=== PATIENT | male | born 1985 | race Caucasian/White ===

== ENCOUNTER → 2023-04-18 | Outpatient (CLI) | payer OTHER, SELFPAY ==
[2023-04-18 17:50] LABS: Absolute Lymphocyte Count 1.75 X10^3/uL (0.83-4.51); Absolute Neutrophil Count 5.9 X10^3/uL (2.0-7.7); Basophil# 0.06 X10^3/uL; Basophil% 0.7 % (0-1); Eosinophil# 0.15 X10^3/uL; Eosinophils% 1.8 % (0-5); Hematocrit 46.1 % (40-54); Hemoglobin 14.9 g/dL (13.0-16.5); Lymphocyte # 1.75 X10^3/ul (0.83-4.51); Lymphocyte % 20.5 % (19-41); Mean Corp Hgb Conc 32.3 g/dL (32-36); Mean Corpuscular Hgb 29.5 pg (27.0-32.0); Mean Corpuscular Volume 91.3 fL (80-94); Mean Platelet Vol. 11.2 fl (6.2-12.0); Monocyte# 0.68 X10^3/uL; NRBC Flagged by Analyzer 0 % (0-5); Neutrophil # 5.86 X10^3/uL (2.7-7.7); Neutrophil % 68.6 % (47-70); Platelet Count 259 K/mm3 (150-450); RBC Distribution Width CV 12.7 % (11.6-14.6); RBC Distribution Width SD 41.7 fl (35.1-43.9); Red Blood Count 5.05 M/mm3 (4.6-6.2); White Blood Count 8.5 K/mm3 (4.4-11.0)
[2023-04-18 18:14] LABS: Hemoglobin A1c 5.2 % (3.8-5.6)
[2023-04-18 18:38] LABS: ALB/GLOB Ratio 1.1 RATIO (0.9-2.4); AST(SGOT) 21 U/L (15-37); Alanine Aminotransfer ALT/SGPT 27 U/L (16-61); Alkaline Phosphatase 51 U/L (45-117); Anion Gap 3 (5-15); BUN 20 mg/dL (7-18); BUN/Creat Ratio 18.7 RATIO (10-20); Chloride 106 mmol/L (98-107); Cholesterol 188 mg/dL (200); Creatinine, Serum 1.07 mg/dL (0.70-1.30); EST Glomerular Filtration Rate 82 mL/min (>60); Est Glom Filt Rate - Afr Amer 99 mL/min (>60); Globulin 3.7 g/dL (2.2-4.2); Glucose 82 mg/dL (74-106); High Density Lipoprotein 47 mg/dL; Protein, Total 7.7 g/dL (6.4-8.2); Sodium Level 136 mmol/L (136-145); Thyroid Stim Hormone (TSH) 2.22 uIU/mL (0.358-3.74); Triglycerides 128 mg/dL; Very Low Density Lipoprotein 26 mg/dL (5-40)
== END | disposition home or self-care (01) ==
LOC: MFPLAB 15:45
PROVIDERS: PCP Family Medicine; Visit Provider Family Medicine
DX: Z00.00 Encounter for general adult medical examination without abnormal findings (principal); Z13.228 Encounter for screening for other metabolic disorders; Z13.1 Encounter for screening for diabetes mellitus; Z13.0 Encounter for screening for diseases of the blood and blood-forming organs and certain disorders involving the immune mechanism; Z13.220 Encounter for screening for lipoid disorders
CPT/HCPCS: 36415; 80053; 80061; 83036; 84443; 85025

== ENCOUNTER → 2023-04-25 | Outpatient (CLI) | payer OTHER, SELFPAY ==
--- NOTE | 2023-04-25 10:52 | US_ITS ---
STUDY: THYROID ULTRASOUND REASON FOR EXAM: Male, 37 years old. L sided neck fullness. Potential thyroid nodule TECHNIQUE: Ultrasound evaluation of the thyroid was performed with real-time and static murcia-scale imaging. COMPARISON: None. FINDINGS: RIGHT LOBE: The right lobe of the thyroid gland measures 4.9 cm x 1.8 cm x 1.3 cm. There is a homogeneous echotexture. There are no demonstrated solid, cystic or complex lesions. LEFT LOBE: The left lobe of the thyroid gland measures 4.3 cm x 1.7 cm x 1.0 cm. There is a homogeneous echotexture. There are no demonstrated solid, cystic or complex lesions. ISTHMUS: The isthmus measures 3 mm. 1.9 cm x 1.1 cm x 0.5 cm benign-appearing right cervical lymph node. 1.7 cm x 0.9 cm x 0.4 cm benign appearing left cervical lymph node. US/Thyroid IMPRESSION: Normal ultrasound examination of the thyroid. Small bilateral cervical lymph nodes. Electronically Signed: Alfonso Amin MD at 14:58 EST ,
== END | disposition home or self-care (01) ==
LOC: US 10:52
PROVIDERS: PCP Family Medicine; Referring Provider Family Medicine; Visit Provider Family Medicine
DX: R22.1 Localized swelling, mass and lump, neck (principal)
CPT/HCPCS: 76536

== ENCOUNTER → 2024-04-24 | Outpatient (CLI) | payer OTHER, SELFPAY ==
[2024-04-24 12:03] LABS: Absolute Lymphocyte Count 1.19 X10^3/uL (0.83-4.51); Absolute Neutrophil Count 3.1 X10^3/uL (2.0-7.7); Basophil# 0.03 X10^3/uL; Basophil% 0.6 % (0-1); Eosinophil# 0.14 X10^3/uL; Eosinophils% 2.9 % (0-5); Hematocrit 46.2 % (40-54); Hemoglobin 14.9 g/dL (13.0-16.5); Lymphocyte # 1.19 X10^3/ul (0.83-4.51); Lymphocyte % 24.6 % (19-41); Mean Corp Hgb Conc 32.3 g/dL (32-36); Mean Corpuscular Hgb 28.9 pg (27.0-32.0); Mean Corpuscular Volume 89.5 fL (80-94); Mean Platelet Vol. 11.3 fl (6.2-12.0); Monocyte% 8.3 % (0-10); NRBC Flagged by Analyzer 0 % (0-5); Neutrophil # 3.07 X10^3/uL (2.7-7.7); Neutrophil % 63.4 % (47-70); Platelet Count 258 K/mm3 (150-450); RBC Distribution Width CV 12.5 % (11.6-14.6); RBC Distribution Width SD 40.9 fl (35.1-43.9); Red Blood Count 5.16 M/mm3 (4.6-6.2); White Blood Count 4.8 K/mm3 (4.4-11.0)
[2024-04-24 12:27] LABS: ALB/GLOB Ratio 1.1 RATIO (0.9-2.4); AST(SGOT) 21 U/L (15-37); Alanine Aminotransfer ALT/SGPT 26 U/L (16-61); Alkaline Phosphatase 56 U/L (45-117); Anion Gap 6 (5-15); BUN 15 mg/dL (7-18); BUN/Creat Ratio 16.2 RATIO (10-20); Calcium,Total 9.1 mg/dL (8.5-10.1); Chloride 105 mmol/L (98-107); Cholesterol 194 mg/dL (200); Creatinine, Serum 0.93 mg/dL (0.70-1.30); EST Glomerular Filtration Rate 96 mL/min (>60); Est Glom Filt Rate - Afr Amer 116 mL/min (>60); Globulin 3.6 g/dL (2.2-4.2); Glucose 88 mg/dL (74-106); High Density Lipoprotein 50 mg/dL; Potassium 4.1 mmol/L (3.5-5.1); Protein, Total 7.6 g/dL (6.4-8.2); Sodium Level 137 mmol/L (136-145); Triglycerides 66 mg/dL; Very Low Density Lipoprotein 13 mg/dL (5-40)
== END | disposition home or self-care (01) ==
LOC: MFPLAB 09:37
PROVIDERS: PCP Family Medicine; Referring Provider Family Medicine; Visit Provider Family Medicine
DX: Z13.1 Encounter for screening for diabetes mellitus (principal); R53.83 Other fatigue; Z13.220 Encounter for screening for lipoid disorders
CPT/HCPCS: 36415; 80053; 80061; 82306; 85025

== ENCOUNTER → 2024-12-26 | Outpatient (CLI) | payer OTHER, SELFPAY ==
--- NOTE | 2024-12-26 14:25 | CT_ITS ---
PROCEDURE: ABDOMEN/PELVIS WITH CONTRAST 12/26/2024 REASON FOR EXAM: ABD PAIN TECHNIQUE: ABDOMEN/PELVIS WITH CONTRAST Coronal and Sagittal reconstruction series were provided. CONTRAST: Isovue 370 VOLUME: 100 mL One or more dose reduction techniques were used (e.g., Automated exposure control, adjustment of the mA and/or kV according to patient size, use of iterative reconstruction technique. RADIATION DOSE SUMMARY: CTDlvol: 30 mGy DLP: 868 mGycm FINDINGS: Oral contrast was administered. There is no bowel obstruction. There is no free-fluid or free air. There is no pelvic or retroperitoneal adenopathy. There is no bowel dilatation or bowel wall thickening. Normal caliber of the abdominal aorta. No renal mass or hydronephrosis. Normal liver, spleen and pancreas. No adrenal or pancreatic abnormalities. No calcified gallstones. No mesenteric mass or adenopathy. There are bilateral L5 pars defects incidentally seen. The lung bases are clear CT/Abdomen/Pelvis WITH Contrast IMPRESSION: No acute abnormality Reading Location: [facility]
== END | disposition home or self-care (01) ==
LOC: CT 14:22
PROVIDERS: PCP Family Medicine; Referring Provider Family Medicine; Visit Provider Family Medicine
DX: R10.9 Unspecified abdominal pain (principal)
CPT/HCPCS: 74177; Q9967

== ENCOUNTER 2025-04-02 11:58 | Day surgery (SDC) | payer OTHER, SELFPAY ==
[2025-04-02] VITALS (8 sets, daily range): BP systolic 113–140; BP diastolic 76–99; PULSE 72–83; RESP 16–18; TEMP 36.4–37; O2SAT 97–100; BMI 25.9
[2025-04-02] MEDS: Lactated Ringers 1,000 ML 15 ML IV (12:15)
--- NOTE | 2025-04-02 12:25 | PCM.PRE.AN2 ---
ASA Classification* ASA Classification ASA Classification: 2 Assessment & Plan Anesthesia* Anesthesia Assessment Anesthesia Assessment: Discussed sedation and/or anesthesia options, risks, benefits, and alternatives with patient/parents/legal guardian/POA. Questions invited. The patient/parents/legal guardian/POA seems to understand and agrees to proceed with anesthesia plan. Reviewed the physical assessment, medical history, allergy history and patient home medications list prior to surgery/procedure/anesthetic and documented any changes. Performed airway and anesthesia risk assessments. Anesthesia Type Anesthesia Type: General Anesthesia Focused Assessment* Airway Assessment Mouth opens: >3 cm Mallampati Score: II Labs Anesthesia Preop lab: CBC WBC, (4.4-11.0) 4.8 K/mm3 04/24/24, 09:37 RBC, (4.6-6.2) 5.16 M/mm3 04/24/24, 09:37 Hgb, (13.0-16.5) 14.9 g/dL 04/24/24, 09:37 Hct, (40-54) 46.2 % 04/24/24, 09:37 Plt Count, (150-450) 258 K/mm3 04/24/24, 09:37 CHEMISTRY Potassium, (3.5-5.1) 4.1 mmol/L 04/24/24, 09:37 Sodium, (136-145) 137 mmol/L 04/24/24, 09:37 BUN, (7-18) 15 mg/dL 04/24/24, 09:37 Creatinine, (0.70-1.30) 0.93 mg/dL 04/24/24, 09:37 Glucose, (74-106) 88 mg/dL 04/24/24, 09:37 TSH, (0.358-3.74) 2.22 uIU/mL 04/18/23, 15:45 COAG Pre-Assessment Diagnosis/Proposed Procedure Planned Operative Procedure(s): (R) Lap Robotic Inguinal Hernia w/mesh Anesthesia History 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 When Was Last Pacemaker Check QUESTION #4 FULL TEXT: You/Your Family Experience fever (hyperthermia) with Anesthesia Last Oral Intake Last Oral intake: Last Oral Intake NPO since Meds taken in AM with sips of water? Meds patient instructed to take am of surgery PONV PONV - housekeeping department worker: PONV - housekeeping department worker Female No 03/30/25 09:12 HX of Motion Sickness Yes 03/30/25 09:12 HX of N/V After Surgery No 03/30/25 09:12 Non-Smoker Yes 03/30/25 09:12 Duration of Surgery greater Yes 03/30/25 09:12 than 60 minutes Number of Risk Factors 3 03/30/25 09:12 PONV Score Moderate Risk 03/30/25 09:12 Height & Weight Height & Weight: Anesthesia: Height & Weight Height 6 ft 03/13/25 08:50 Respiratory Assessment Respiratory Assessment - housekeeping department worker: Respiratory Tract Infection Hx - housekeeping department worker Hx Respiratory Tract Infection No 03/30/25 09:12 STOP Sleep Apnea STOP Sleep Apnea - housekeeping department worker: STOP Sleep Apnea - housekeeping department worker Hx Hypertension No 03/30/25 09:12 Hx Sleep Apnea No 03/30/25 09:12 CPAP BIPAP Do you snore loudly (louder No 03/30/25 09:12 than talking or can be heard Do you often feel tired/ No 03/30/25 09:12 fatigued/ sleepy during daytime? Has anyone observed you stop No 03/30/25 09:12 breathing during sleep? STOP Results Negative 03/30/25 09:12 QUESTION #5 FULL TEXT : Do you snore loudly (louder than talking or can be heard through closed doors)? Tobacco Use History Tobacco Use History - housekeeping department worker: Tobacco Use History - housekeeping department worker Tobacco Use Smoking Status Never smoker 03/30/25 09:12 Hx Tobacco Use No 03/30/25 09:12 Years Smoking Packs Smoked per Day Smoking Cessation Date was within the last 15 years Hx Smoking Cessation Date Hx Smoking Cessation Counseling Hematologic Medial History Hematologic Hx - housekeeping department worker: Hematologic Medical Hx - property manager Hx of Blood Transfusion No 03/30/25 09:12 Hx of Transfusion in last 3 No 03/30/25 09:12 Months Date of Last Transfusion (if within last 3 months) Ever experience any problems No 03/30/25 09:12 with transfusion(s)? Specify any problems Hx of Preganancy in last 3 N/A 03/30/25 09:12 Months Nurse Filling Out Transfusion NBUCHER 03/30/25 09:12 & Questions: Date: 03/30/25 03/30/25 09:12 Time: 09:13 03/30/25 09:12 Patient unable to answer at this time (ie. confused, unrespo /Reproduction History /Reproductive History - housekeeping department worker: /Reproductive Hx- housekeeping department worker Hx Now No 03/30/25 09:12 Gestational Age (in weeks): EDC: Hx Hx Para Hx Section SAB No 03/30/25 09:12 Does the father of the baby or his family experience fever w Father of the baby Malignant Hypertension history comment Active Medications Active Medications: Current Medications Generic Name Dose Route Start Last Admin Trade Name Freq PRN Reason Stop Dose Admin Lactated Ringer's 1,000 mls @ 15 mls/hr 04/02/25 12:15 IV .Q48H TENISHA PFSH Medical History Non-smoker Laceration of left thigh Home Medications ?Medication ?Instructions ?Recorded ?Last Taken ?Type NK 03/30/25 Unknown History Allergy/AdvReac Type Severity Reaction Status Date / Time No Known Allergies Allergy Verified 03/30/25 09:11 Family History Grandfather Cancer Surgical History History of meniscectomy of left knee Hx of LASIK Social History Smoking Status: Never smoker alcohol intake: current alcohol intake frequency: a few times a month Review of Systems (Anesthesia) ROS Narrative System reviewed and no additional complaints, except as documented.
--- NOTE | 2025-04-02 13:08 | PCM.HP.BLA ---
History and Physical Date of Admission: 04/02/25 Intake Vital Signs 06/30/2206:40 03/13/2508:50 Height 6 ft 6 ft Weight: 192 lb BMI 26.0 BP 128/77 H Blood Pressure Location Rt brachial Position Sitting Respiration 17 Pulse 83 Pulse Source Monitor Pulse Oximetry (%) 97 Oxygen Delivery Method room air Intake Visit Reasons: INGUINAL HERNIA Chief Complaint: inguinal hernia Is patient in pain?: No Allergies No Known Allergies Allergy (Unverified 03/13/25 08:51) PFSH Medical History (Updated 03/13/25 @ 09:[address] Omer Vargas MD) Laceration of left thigh Surgical History (Updated 03/13/25 @ 08:49 by Dayana Grimm) Hx of LASIK Family History (Updated 03/13/25 @ 08:49 by Dayana Grimm) Grandfather Cancer Social History (Updated 03/13/25 @ 08:50 by Dayana Grimm) Smoking Status: Never smoker alcohol intake: current alcohol intake frequency: a few times a month HPI HPI HPI: Patient is a 39-year-old male with a right inguinal hernia that he reports has been there for several months. He reports that is getting larger and more uncomfortable. He denies nausea or vomiting or fevers or chills. ROS General General: No weight change, appetite, fatigue, colon cancer, breast cancer or weakness HEENT HEENT: Yes eye surgery; No difficulty swallowing, eye injury, swollen glands or hoarseness Endo Endocrine: No thyroid disease, diabetes mellitus, thyroid cancer, Hair loss, heat intolerance or cold intolerance Skin Skin: No rash or changing moles Musc Musculoskeletal: No back problems, arthritis, rheumatoid arthritis, gout or joint pain Cardio Cardiovascular: No murmur, pacemaker, heart disease, atrial fibrillation, high blood pressure, heart attack, heart stent, palpitations, shortness of breath with exertion or chest pain Psych Psychiatric: No depression, anxiety or hearing voices Resp Respiratory: No shortness of breath, No sleep apnea, No cough, No COPD, No asthma, No emphysema and No wheezing Gastro Gastrointestinal: No abdominal pain, No nausea or vomiting, No diarrhea, No constipation, No blood in stool, No acid reflux, No hemorrhoids, No ulcers, No gallbladder problem and No black,tarry stools To Hematologic: No blood thinners, No blood disorders, No bleeding, No anemia and No blood clots Neuro Neurologic: No system reviewed and no additional complaints, except as documented, No as per HPI, No abnormal gait, No abnormal hearing, No abnormal movements, No abnormal speech, No behavioral changes, No burning sensations, No confusion, No convulsions, No disequilibrium, No dizziness, No localized weakness, No frequent falls, No headache(s), No lack of coordination, No loss of vision, No memory loss, No numbness, No other visual disturbances, No radicular pain, No restless legs, No sensory deficit, No syncope, No tingling, No tremor(s), No weakness and No other Exam Const General: cooperative Orientation: alert and oriented x3 HENMT Head: normal to inspection Neck Neck: normal visual inspection and full ROM Chest Chest palpation & inspection: normal inspection of the chest Resp Effort & Inspection: normal respiratory effort Auscultation: clear to auscultation bilaterally Cardio Rate: regular rate Rhythm: regular rhythm GI Inspection: non-distended Palpation: soft, hernia direct inguinal on the right and nontender Skin General: no rashes or lesions noted Neuro General: patient alert and patient oriented x3 Extrem General: full ROM Psych Appearance: grossly normal Mental Status: mental status grossly normal Assessment and Plan Assessment and Plan (1) Right inguinal hernia: Status: Acute Plan: The patient has a right inguinal hernia which is reducible. He has no symptoms on the left. He reports no nausea or vomiting. I discussed robotic assisted laparoscopic right inguinal hernia repair with mesh. I discussed the procedure in detail as well as the risks including but not limited to bleeding, infection, injury other organs such as the bowel, bladder, ureter, blood supply to the testicle. Patient understands the risks and is willing to proceed. We discussed repairing the contralateral side if a hernia is present. Omer Vargas MD Pager: [facility] [address] [place] [address], [address] [place] [address] Office: I have examined the patient and the H&P has been reviewed. There are no clinical changes since date of exam.
[2025-04-02] MEDS: Midazolam 2 MG/2 ML Syringe IV (13:47)
[2025-04-02] MEDS: Cefazolin 1 GM/5 ML Vial 2 GM IV (13:52)
[2025-04-02] MEDS: fentaNYL 100 MCG/2 ML Ampul 200 MCG IV (14:28)
--- NOTE | 2025-04-02 14:39 | PCM.OPRPT ---
Operative Report (Standard) Operative Information Date of Procedure: 04/02/25 Pre-Operative Diagnosis: Right inguinal hernia Post-Operative Diagnosis: Right inguinal hernia Surgery/Procedure Performed: Robotic assisted laparoscopic right inguinal hernia repair with mesh skoog machine operator: Yes Sandwich Maker: Carmen Babb Tasks completed by food and nutrition services assistant: Opening & closing Type of Anesthesia: General/Regional RN Documented Start/Stop Times: Operation Date: 04/02/25 13:30 Case Time Into Pre-Op 04/02/25 12:09 Anesthesia Start 04/02/25 13:40 Into Room 04/02/25 13:40 Procedure Start 04/02/25 13:59 Procedure Start Time: 13:59 Procedure Stop Time: 14:45 Select all DRAINS/GRAFTS/IMPLANTS that apply: Prosthetic device Prosthetic device details: ProGrip mesh Estimated Blood Loss: 10 Specimen collected: No Description of surgery: Patient was brought back to the operating room and general anesthesia was induced. The abdomen was prepped and draped in usual sterile fashion. A midline incision was made superior to the umbilicus. The fascia was grasped and elevated and a Veress needle was placed into the abdomen. Drop test was performed. The abdomen is insufflated 15 mmHg. The Veress needle was removed. A port was placed into the abdomen. The camera is placed in the abdomen to inspect from injuries and there were none. Patient was placed in steep Trendelenburg position. Under direct visualization an 8 mm port was placed in the right lateral abdomen as well as left lateral abdomen and the robot was docked. Using electrocautery scissors then incision was made in the peritoneum in the right lower quadrant. Dissection was carried inferior. There was retroperitoneal fat contained in the hernia that was reduced back into the retroperitoneum. The hernia sac was dissected free medial to this. Once the hernia sac was fully dissected free and the lipoma was fully dissected free and reduced back into the retroperitoneum the mesh was placed over the right inguinal hernia. The mesh was unfolded completely covering the inguinal hernia and placed behind the retroperitoneal fat. The retroperitoneal fat was then placed over the mesh to prevent it from going under the mesh. Next the peritoneum was reapproximated using a running 3 oh V-Loc suture. This completely covered the mesh. The retroperitoneal lipoma was incorporated into the suture line. Next the robot was undocked and the instruments were removed. The caps were removed from the ports and the abdomen was allowed to desufflate. The ports were removed. The skin incisions were injected with local anesthetic and closed with interrupted 4-0 Monocryl sutures. Steri-Strips and bandages were applied. The scrotum was checked at the end of the case and contained both testicles. The patient was awoken and taken to PACU in stable condition and tolerated the procedure well. Surgical Findings: Right inguinal hernia containing retroperitoneal fat Complications Complications: No Admit VTE Documentation VTE Mechan Device Prophylaxis: SCD's
--- NOTE | 2025-04-02 14:45 | EX.PCM.DISCH ---
Discharge Instructions Procedure Hernia Diet Discharge Diet: Light diet - advance as tolerated Activity Discharge Activity: May Not Drive (for 2-3 days or while taking narcotic pain meds.) and May Shower (with the bandage in place 1-2 days after surgery.) Lifting Restrictions: 20 pounds for 4 weeks. Additional Activity Instructions:: Climbing stairs is fine, walking is encouraged. Sitting in bed may be uncomfortable. Sitting up using your lateral muscles (sitting up sideways) is usually more comfortable. Do not drive, work heavy equipment of sign legal documents for 24 hours. If your hernia repair was an inguinal repair, you may have scrotal swelling, an ice pack and/or athletic support can provide more comfort. Pain medications may cause nausea, you should typically eat light foods as you take your pain medications. Pain medications may also cause constipation. If you have difficulty with this, discuss with your doctor. Dressing / Incision Call your doctor if your incision/area has: Continuous Slow Oozing, Sudden Increased Bleeding, Increased Pain/ Swelling, Increased Redness and Foul Smelling Discharge Call your doctor if you observe: Fever of 101 or Higher Suture Line Care: Avoid Pulling/Pushing and Avoid Pinching/Bending Remove Dressing in: 2 days (Remove clear bandages in 2 days, remove Steri-Strips in 7 to 10 days.) Additional Dressing/Incision Instructions:: Take ibuprofen and Tylenol alternating for pain, oxycodone for breakthrough pain Follow Up Care Please Follow Up With: Omer Vargas MD When: Please call to schedule 2 week follow up appointment. [phone] Test Results: Test results from this visit will be discussed in further detail at your follow-up appointment, if applicable. Discharge Plan Admission Attending Provider: Omer Vargas Primary Care Provider: Kristan Hedrick Instructions Print Language: Cypriot Discharge Orders/Prescriptions Prescriptions: New oxycodone 5 mg Tablet 5 - 10 mg PO Q4H PRN PRN (Reason: Pain Score 4-10) 5 Days Qty: 10 0RF Referrals / Follow Up: Kristan Hedrick MD [Primary Care Provider, Family Practice] Disposition Disposition (needs filled in before D/C Order can be placed): Home, Self Care
--- NOTE | 2025-04-02 16:14 | PCM.POST.ANE ---
Anesthesia: Postop Eval I Current Vital Signs Temperature: 97.8 F Pulse Rate: 73 Blood Pressure: 127/79 Respiratory Rate: 16 Pulse Ox: 100 Oxygen Delivery Method: Room Air Assessment Airway patent: Yes Spontaneous unlabored respirations: Yes Mental status: Awake nausea: No Vomiting: No Anesthesia Complication: No Fluid Hydration Crystalloid volume administer (ml): 400 Total IV fluid infused: 400 Progress Note Anesthesia document: Postop Eval 1 completed: Yes
--- NOTE | 2025-04-02 16:16 | PCM.POSTANE2 ---
Anesthesia Postop Eval I Sum Postop Eval Completion status Anesthesia document: Postop Eval 1 completed: Yes Anesthesia Postop Eval I Summary Anesthesia Postop Eval I Summary: Anesthesia Postop Eval I: Assessment Summary Airway patent Yes 04/02/25 16:16 Spontaneous unlabored Yes 04/02/25 16:16 respirations Mental status Awake 04/02/25 16:16 nausea No 04/02/25 16:16 Vomiting No 04/02/25 16:16 Anesthesia Postop Eval I: Fluid Summary Crystalloid volume administer 400 04/02/25 16:16 (ml) Colloids volume administered ( ml) Blood Product volume administered (ml) Total IV fluid infused 400 04/02/25 16:16 Anesthesia Postop Eval I: Summary Notes Anesthesia Complication No 04/02/25 16:16 Anesthesia Complication Comment: Post-operative progress note Anesthesia: Postop Eval II Evaluation Mental status: Awake Pain Level: 2 nausea: No Vomiting: No
--- OUTSIDE RECORDS SUMMARY | 2025-04-02 18:23 | XMS RPT_ITS | CCD ---
Author Organization [facility] Inform ion Partnership [facility] Care Team Providers Care Substitute Nurse Name Role Phone KULWANT CAMPBELL Attending Unavailable KULWANT CAMPBELL Consulting Unavailable KULWANT CAMPBELL Admitting Unavailable NONE, NONE Primary Care Unavailable NONE, NONE Consulting Unavailable Floridalma KEARNS, Kristan Primary Care Provider [phone] Kristan Ceron MD Attending Provider [phone] Kristan Ceron MD Referring Provider [phone] KRISTAN CERON MD Primary Care Physician [phone] KRISTAN CERON MD Attending Unavailable KRISTAN CERON MD Primary Care Unavailable Omer Vargas Attending Unavailable Floridalma, Kristan Primary Care Unavailable Kristan Ceron Attending Unavailable Floridalma, Kristan Primary Care Unavailable Floridalma, Kristan Referring Unavailable Floridalma, Kristan Referring Unavailable Floridalma, Kristan Attending Unavailable Floridalma, Kristan Primary Care Unavailable Floridalma, Kristan Referring Unavailable Omer Vargas Attending Unavailable Kristan Ceron Primary Care Unavailable Medications Current Medications Medication Drug Class(es) Dates Sig (Normalized) Sig (Original) amoxicillin 875 mg / clavulanate 125 mg oral tablet (3 sources) Penicillin-class Antibacterial Start: 06-30-2021 Amoxicillin-Pot Clavulanate 875-125 mg tablet Active 1 {tbl} PO TWICE A DAY 14 June 30, 2021 1:00am Start: 06-30-2021 take 1 tablet by sarah th twice daily Amoxicillin-Pot Clavulanate Active 1 TABLET PO TWICE A DAY June 30, 2021 12:00am Problems Active Problems Problem Classification Problem Date Documented Da te Episodic/Chronic Abdominal pain (1 source) Unspecified abdominal pain; Translations: [Unspecified abdominal pain] Onset: 01-01-2025 Episodic Open wounds of extremities (3 sources) Laceration of thigh; Translations: [Laceration without foreign body, left thigh, initial encounter] 06-30-2021 Episodic Past or Other Problems Problem Classification Problem Date Documented Da te Episodic/Chronic Immunizations and screening for infectious disease (2 sources) Encounter for observation for suspected exposure to other biological agents ruled out; Translations: [ENC OBS EXPS OTH BIO AGT RULED OUT] Onset: 11-13-2019 Episodic Other screening for suspected conditions (not mental disorders or infectious disease) (1 source) Encounter for screening for diabetes mellitus; Translations: [Encounter for screening for diabetes mellitus] Onset: 05-27-2024 Episodic Results Test Name Value Interpretation Reference Range Facility Surgery Visit Reporton 03-13 Surgery Visit Report [facility] [address] [place] [address] OFFICE VISIT Date of Service: 03/13/25 MR#: [id number] Acct: [id number] Name: TRUNG LUCERO SCOT Rep #: [id number] : 1985 Provider: Dr. Omer mcdaniel MD Age/Sex: 39/M Location: [facility] Status: Signed Intake Vital Signs 06/30/21 07:40 03/13/25 08:50 Height 6 ft 6 ft Weight: 192 lb BMI 26.0 BP 128/77 H Blood Pressure Location Rt brachial Position Sitting Respiration 17 Pulse 83 Pulse Source Monitor Pulse Oximetry (%) 97 Oxygen Delivery Method room air Intake Visit Reasons: INGUINAL HERNIA Chief Complaint: inguinal hernia Is patient in pain?: No Allergies No Known Allergies Allergy (Unverified 03/13/25 08:51) PFSH Medical History (Updated 03/13/25 @ 09:[address] Omer Vargas MD) Laceration of left thigh Surgical History (Updated 03/13/25 @ 08:49 by Dayana Grimm) Hx of LASIK Family History (Updated 03/13/25 @ 08:49 by Dayana Grimm) Grandfather Cancer Social History (Updated 03/13/25 @ 08:50 by Dayana Grimm) Smoking Status: Never smoker alcohol intake: current alcohol intake frequency: a few times a month HPI HPI HPI: Patient is a 39-year-old male with a right inguinal hernia that he reports has been there for several months. He reports that is getting larger and more uncomfortable. He denies nausea or vomiting or fevers or chills. ROS General General: No weight change, appetite, fatigue, colon cancer, breast cancer or weakness HEENT HEENT: Yes eye surgery; No difficulty swallowing, eye injury, swollen glands or hoarseness Endo Endocrine: No thyroid disease, diabetes mellitus, thyroid cancer, Hair loss, heat intolerance or cold intolerance Skin Skin: No rash or changing moles Musc Musculoskeletal: No back problems, arthritis, rheumatoid arthritis, gout or joint pain Cardio Cardiovascular: No murmur, pacemaker, heart disease, atrial fibrillation, high blood pressure, heart attack, heart stent, palpitations, shortness of breath with exertion or chest pain Psych Psychiatric: No depression, anxiety or hearing voices Resp Respiratory: No shortness of breath, No sleep apnea, No cough, No COPD, No asthma, No emphysema and No wheezing Gastro Gastrointestinal: No abdominal pain, No nausea or vomiting, No diarrhea, No constipation, No blood in stool, No acid reflux, No hemorrhoids, No ulcers, No gallbladder problem and No black,tarry stools To Hematologic: No blood thinners, No blood disorders, No bleeding, No anemia and No blood clots Neuro Neurologic: No system reviewed and no additional complaints, except as documented, No as per HPI, No abnormal gait, No abnormal hearing, No abnormal movements, No abnormal speech, No behavioral changes, No burning sensations, No confusion, No convulsions, No disequilibrium, No dizziness, No localized weakness, No frequent falls, No headache(s), No lack of coordination, No loss of vision, No memory loss, No numbness, No other visual disturbances, No radicular pain, No restless legs, No sensory deficit, No syncope, No tingling, No tremor(s), No weakness and No other Exam Const General: cooperative Orientation: alert and oriented x3 [facility] Head: normal to inspection Neck Neck: normal visual inspection and full ROM Chest Chest palpation inspection: normal inspection of the chest Resp Effort Inspection: normal respiratory effort Auscultation: clear to auscultation bilaterally Cardio Rate: regular rate Rhythm: regular rhythm GI Inspection: non-distended Palpation: soft, hernia direct inguinal on the right and nontender Skin General: no rashes or lesions noted Neuro General: patient alert and patient oriented x3 Extrem General: full ROM Psych Appearance: grossly normal Mental Status: mental status grossly normal Assessment and Plan Assessment and Plan (1) Right inguinal hernia: Status: Acute Plan: The patient has a radial hernia which is reducible. He has no symptoms on the left. He reports no nausea or vomiting. I discussed robotic assisted laparoscopic right inguinal hernia repair with mesh. I discussed the procedure in detail as well as the risks including but not limited to bleeding, infection, injury other organs such as the bowel, bladder, ureter, blood supply to the testicle. Patient understands the risks and is willing to proceed. We discussed repairing the contralateral side if a hernia is present. Omer Vargas MD Pager: [facility] [address] [place] [address], [address] [place] [address] Office: Coding Level of Care Code Off vis,new,level 4 Diagnoses Right inguinal hernia K40.90 03/13/25 (more content not included)... Normal [facility] US GROIN RIGHTon 02-25-2025 US GROIN RIGHT ORIGINAL EXAMINATION: Right groin [id number]/15/202 9:57 am COMPARISON: None TECHNIQUE: This interpretation is based on permanently stored and recorded images. The groin is scanned without and with the patient performing Valsalva. HISTORY: ORDERING SYSTEM PROVIDED HISTORY: Reason for Exam: ABD PAIN, , painful swelling in the right groin FINDINGS: There is a right groin hernia of 3.6 x 2.9 x 0.8 cm that contains fat and bowel. This is more prominent with Valsalva. The hernia is non reducible with gentle pressure. The hernia neck is about 1.7 cm. IMPRESSION: Right inguinal hernia. Interpreted by: Madelyn Carson MD Preliminary Report By: Madelyn Carson MD Electronically signed By Madelyn Carson MD Dictated Date: 02/25/2025 10:50:58 AM Prelim Date: 02/25/2025 10:52:53 AM Sign Date: 02/25/2025 10:52:53 AM Ordering Provider: KRISTAN CERON RP Normal [facility] Abdomen/Pelvis WITH Contrast on 12-26-2024 Abdomen/Pelvis WITH Contrast [facility] [address] [place] [address] [id number] Abdomen/Pelvis WITH Contrast MR#: [id number] Acct: [id number] Name: TRUNG LUCERO Rep #: [id number] : 1985 M 39 From: Champ Montez MD PCP: Dr. Kristan Ceron MD Status: REG CLI Study: Abdomen/Pelvis WITH Contrast Date of Exam: Exam# [id number] Ordering Dr: Kristan Ceron MD PROCEDURE: ABDOMEN/PELVIS WITH CONTRAST 12/26/2024 REASON FOR EXAM: ABD PAIN TECHNIQUE: ABDOMEN/PELVIS WITH CONTRAST Coronal and Sagittal reconstruction series were provided. CONTRAST: Isovue 370 VOLUME: 100 mL One or more dose reduction techniques were used (e.g., Automated exposure control, adjustment of the mA and/or kV according to patient size, use of iterative reconstruction technique. RADIATION DOSE SUMMARY: CTDlvol: 30 mGy DLP: 868 mGycm FINDINGS: Oral contrast was administered. There is no bowel obstruction. There is no free-fluid or free air. There is no pelvic or retroperitoneal adenopathy. There is no bowel dilatation or bowel wall thickening. Normal caliber of the abdominal aorta. No renal mass or hydronephrosis. Normal liver, spleen and pancreas. No adrenal or pancreatic abnormalities. No calcified gallstones. No mesenteric mass or adenopathy. There are bilateral L5 pars defects incidentally seen. The lung bases are clear CT/Abdomen/Pelvis WITH Contrast IMPRESSION: No acute abnormality Reading Location: [facility] CC: Dr. Kristan Ceron MD [employer] Technician: Signed Normal [facility] CBC W/Diff, Automatedon 04-13 Absolute Lymph 1.19 X10 3/uL Normal 0.83-4.51 [facility] Comment on above: Order Comment: Order Date: 04/24/24 Order Info: [id number] - CBCD Performed By: #### L 500.4050, L500.4100, L100.0100, L506.1000 #### [facility] [address] [place], [address] Absolute Neut 3.1 X10 3/uL Normal 2.0-7.7 [facility] Comment on above: Order Comment: Order Date: 04/24/24 Order Info: [id number] - CBCD Performed By: #### L 500.4050, L500.4100, L100.0100, L506.1000 #### [facility] [address] [place], [address] Basophils/100 WBC (Bld) 0.6 % Normal 0-1 [facility] Comment on above: Order Comment: Order Date: 04/24/24 Order Info: [id number] - CBCD Performed By: #### L 500.4050, L500.4100, L100.0100, L506.1000 #### [facility] [address] [place], [address] Eosinophils/100 WBC (Bld) 2.9 % Normal 0-5 [facility] Comment on above: Order Comment: Order Date: 04/24/24 Order Info: 0184- - CBCD Performed By: #### L 500.4050, L500.4100, L100.0100, L506.1000 #### [facility] [address] [place], [address] Erythrocyte distribution width (RBC) [Ratio] 12.5 % Normal 11.6-14.6 [facility] Comment on above: Order Comment: Order Date: 04/24/24 Order Info: 0184-1 - CBCD Performed By: #### L 500.4050, L500.4100, L100.0100, L506.1000 #### [facility] [address] [place], [address] Hematocrit (Bld) [Volume fraction] 46.2 % Normal 40-54 [facility] Comment on above: Order Comment: Order Date: 04/24/24 Order Info: 0184-1 - CBCD Performed By: #### L 500.4050, L500.4100, L100.0100, L506.1000 #### [facility] [address] [place], [address] Hemoglobin (Bld) [Mass/Vol] 14.9 g/dL Normal 13.0-16.5 [facility] Comment on above: Order Comment: Order Date: 04/24/24 Order Info: [id number] - CBCD Performed By: #### L 500.4050, L500.4100, L100.0100, L506.1000 #### [facility] [address] [place], [address] IG% 0.200 Normal 0.0-0.9 [facility] Comment on above: Order Comment: Order Date: 04/24/24 Order Info: [id number] - CBCD Result Comment: IG% - Immature Granulocytes (promyelocytes, myelocytes and metamyelocytes) > 1% indicates that a LEFT SHIFT is Present. Performed By: #### L 500.4050, L500.4100, L100.0100, L506.1000 #### [facility] [address] [place], [address] Lymphocytes/100 WBC (Bld) 24.6 % Normal 19-41 [facility] Comment on above: Order Comment: Order Date: 04/24/24 Order Info: 01808-12 - CBCD Performed By: #### L 500.4050, L500.4100, L100.0100, L506.1000 #### [facility] [address] [place], [address] MCH (RBC) [Entitic mass] 28.9 pg Normal 27.0-32.0 [facility] Comment on above: Order Comment: Order Date: 04/24/24 Order Info: [id number] - CBCD Performed By: #### L 500.4050, L500.4100, L100.0100, L506.1000 #### [facility] [address] [place], [address] MCHC (RBC) [Mass/Vol] 32.3 g/dL Normal 32-36 [facility] Comment on above: Order Comment: Order Date: 04/24/24 Order Info: 0184-1 - CBCD Performed By: #### L 500.4050, L500.4100, L100.0100, L506.1000 #### [facility] [address] [place], [address] MCV (RBC) [Entitic vol] 89.5 fL Normal 80-94 [facility] Comment on above: Order Comment: Order Date: 04/24/24 Order Info: 018- - CBCD Performed By: #### L 500.4050, L500.4100, L100.0100, L506.1000 #### [facility] [address] [place], [address] Monocytes/100 WBC (Bld) 8.3 % Normal 0-10 [facility] Comment on above: Order Comment: Order Date: 04/24/24 Order Info: 018- - CBCD Performed By: #### L 500.4050, L500.4100, L100.0100, L506.1000 #### [facility] [address] [place], [address] Neutrophils/100 WBC (Bld) 63.4 % Normal 47-70 [facility] Comment on above: Order Comment: Order Date: 04/24/24 Order Info: 018-1 - CBCD Performed By: #### L 500.4050, L500.4100, L100.0100, L506.1000 #### [facility] [address] [place], [address] Nucleated RBC (Bld) [#/Vol] 0 10*3/uL Normal 0-5 [facility] Comment on above: Order Comment: Order Date: 04/24/24 Order Info: 0184-1 - CBCD Performed By: #### L 500.4050, L500.4100, L100.0100, L506.1000 #### [facility] [address] [place], [address] Platelet mean volume (Bld) [Entitic vol] 11.3 fL Normal 6.2-12.0 [facility] Comment on above: Order Comment: Order Date: 04/24/24 Order Info: 018- - CBCD Performed By: #### L 500.4050, L500.4100, L100.0100, L506.1000 #### [facility] [address] [place], [address] Platelets (Bld) [#/Vol] 258 10*3/uL Normal 150-450 [facility] Comment on above: Order Comment: Order Date: 04/24/24 Order Info: 018- - CBCD Performed By: #### L 500.4050, L500.4100, L100.0100, L506.1000 #### [facility] [address] [place], [address] RBC (Bld) [#/Vol] 5.16 10*6/uL Normal 4.6-6.2 [facility] Comment on above: Order Comment: Order Date: 04/24/24 Order Info: 018- - CBCD Performed By: #### L 500.4050, L500.4100, L100.0100, L506.1000 #### [facility] [address] [place], [address] RDW SD 40.9 fl Normal 35.1-43.9 [facility] Comment on above: Order Comment: Order Date: 04/24/24 Order Info: 018- - CBCD Performed By: #### L 500.4050, L500.4100, L100.0100, L506.1000 #### [facility] [address] [place], [address] WBC (Bld) [#/Vol] 4.8 10*3/uL Normal 4.4-11.0 [facility] Comment on above: Order Comment: Order Date: 04/24/24 Order Info: 0184-1 - CBCD Performed By: #### L 500.4050, L500.4100, L100.0100, L506.1000 #### [facility] [address] [place], [address] Comprehensive Metabolic Prof ilon 04-24-2024 Albumin [Mass/Vol] 4.0 g/dL Normal 3.2-5.0 [facility] Comment on above: Order Comment: Order Date: 04/24/24 Order Info: 0786-1 - CMP Order Info: [id number] - LIPID Performed By: #### L 500.4050, L500.4100, L100.0100, L506.1000 #### [facility] [address] [place], [address] Albumin/Globulin [Mass ratio] 1.1 {ratio} Normal 0.9-2.4 [facility] Comment on above: Order Comment: Order Date: 04/24/24 Order Info: 0786-1 - CMP Order Info: [id number] - LIPID Performed By: #### L 500.4050, L500.4100, L100.0100, L506.1000 #### [facility] [address] [place], [address] ALK P 56 U/L Normal 45-117 [facility] Comment on above: Order Comment: Order Date: 04/24/24 Order Info: 0786-1 - CMP Order Info: [id number] - LIPID Performed By: #### L 500.4050, L500.4100, L100.0100, L506.1000 #### [facility] [address] [place], [address] ALT [Catalytic activity/Vol] 26 U/L Normal 16-61 [facility] Comment on above: Order Comment: Order Date: 04/24/24 Order Info: 0786-1 - CMP Order Info: [id number] - LIPID Performed By: #### L 500.4050, L500.4100, L100.0100, L506.1000 #### [facility] [address] [place], [address] AST [Catalytic activity/Vol] 21 U/L Normal 15-37 [facility] Comment on above: Order Comment: Order Date: 04/24/24 Order Info: 0786-1 - CMP Order Info: [id number] - LIPID Performed By: #### L 500.4050, L500.4100, L100.0100, L506.1000 #### [facility] [address] [place], [address] Bilirubin [Mass/Vol] 0.40 mg/dL Normal 0.20-1.00 [facility] Comment on above: Order Comment: Order Date: 04/24/24 Order Info: 0786- - CMP Order Info: [id number] - LIPID Result Comment: For patients on eltrombopag therapy, use of Dimension [place] TBIL is not recommended. Performed By: #### L 500.4050, L500.4100, L100.0100, L506.1000 #### [facility] [address] [place], [address] BUN/CRE 16.2 RATIO Normal 10-20 [facility] Comment on above: Order Comment: Order Date: 04/24/24 Order Info: 0786-1 - CMP Order Info: [id number] - LIPID Performed By: #### L 500.4050, L500.4100, L100.0100, L506.1000 #### [facility] [address] [place], [address] CA,Total 9.1 mg/dL Normal 8.5-10.1 [facility] Comment on above: Order Comment: Order Date: 04/24/24 Order Info: 0786-1 - CMP Order Info: [id number] - LIPID Performed By: #### L 500.4050, L500.4100, L100.0100, L506.1000 #### [facility] [address] [place], [address] Chloride [Moles/Vol] 105 mmol/L Normal 98-107 [facility] Comment on above: Order Comment: Order Date: 04/24/24 Order Info: 071 - CMP Order Info: [id number] - LIPID Performed By: #### L 500.4050, L500.4100, L100.0100, L506.1000 #### [facility] [address] [place], [address] CO2 [Moles/Vol] 26.0 mmol/L Normal 21.0-32.0 [facility] Comment on above: Order Comment: Order Date: 04/24/24 Order Info: 07 - CMP Order Info: [id number] - LIPID Performed By: #### L 500.4050, L500.4100, L100.0100, L506.1000 #### [facility] [address] [place], [address] Creatinine [Mass/Vol] 0.93 mg/dL Normal 0.70-1.30 [facility] Comment on above: Order Comment: Order Date: 04/24/24 Order Info: 07 - CMP Order Info: [id number] - LIPID Result Comment: The validity of the calculated GFR GFRAA in patients over 70 years has not been determined. Clinical correlation is essential. Performed By: #### L 500.4050, L500.4100, L100.0100, L506.1000 #### [facility] [address] [place], [address] EST GFR - AA 116 mL/min Normal >60 [facility] Comment on above: Order Comment: Order Date: 04/24/24 Order Info: 0786 - CMP Order Info: [id number] - LIPID Result Comment: Afri can [place] GFR Calc Performed By: #### L 500.4050, L500.4100, L100.0100, L506.1000 #### [facility] [address] [place], [address] GAP 6 Normal 5-15 [facility] Comment on above: Order Comment: Order Date: 04/24/24 Order Info: 0786- - CMP Order Info: [id number] - LIPID Performed By: #### L 500.4050, L500.4100, L100.0100, L506.1000 #### [facility] [address] [place], [address] GFR/1.73 sq M.predicted among non-blacks MDRD (S/P/Bld) [Vol rate/Area] 96 mL/min/{1.73_m2} Normal >60 [facility] Comment on above: Order Comment: Order Date: 04/24/24 Order Info: [id number] - CMP Order Info: [id number] - LIPID Result Comment: Non- GFR Calc Performed By: #### L 500.4050, L500.4100, L100.0100, L506.1000 #### [facility] [address] [place], [address] Globulin (S) [Mass/Vol] 3.6 g/dL Normal 2.2-4.2 [facility] Comment on above: Order Comment: Order Date: 04/24/24 Order Info: 0786 - CMP Order Info: [id number] - LIPID Performed By: #### L 500.4050, L500.4100, L100.0100, L506.1000 #### [facility] [address] [place], [address] Glucose [Mass/Vol] 88 mg/dL Normal 74-106 [facility] Comment on above: Order Comment: Order Date: 04/24/24 Order Info: 0786- - CMP Order Info: [id number] - LIPID Performed By: #### L 500.4050, L500.4100, L100.0100, L506.1000 #### [facility] [address] [place], [address] Potassium [Moles/Vol] 4.1 mmol/L Normal 3.5-5.1 [facility] Comment on above: Order Comment: Order Date: 04/24/24 Order Info: 0786-1 - CMP Order Info: [id number] - LIPID Performed By: #### L 500.4050, L500.4100, L100.0100, L506.1000 #### [facility] [address] [place], [address] Sodium [Moles/Vol] 137 mmol/L Normal 136-145 [facility] Comment on above: Order Comment: Order Date: 04/24/24 Order Info: 0786- - CMP Order Info: [id number] - LIPID Performed By: #### L 500.4050, L500.4100, L100.0100, L506.1000 #### [facility] [address] [place], [address] T PROT 7.6 g/dL Normal 6.4-8.2 [facility] Comment on above: Order Comment: Order Date: 04/24/24 Order Info: 0786- - CMP Order Info: [id number] - LIPID Performed By: #### L 500.4050, L500.4100, L100.0100, L506.1000 #### [facility] [address] [place], [address] Urea nitrogen [Mass/Vol] 15 mg/dL Normal 7-18 [facility] Comment on above: Order Comment: Order Date: 04/24/24 Order Info: 0786-1 - CMP Order Info: [id number] - LIPID Performed By: #### L 500.4050, L500.4100, L100.0100, L506.1000 #### [facility] [address] [place], [address] Lipid Profileon 04-24-2024 Cholesterol [Mass/Vol] 194 mg/dL Normal 200 [facility] Comment on above: Order Comment: Order Date: 04/24/24 Order Info: 0786- - CMP Order Info: [id number] - LIPID Result Comment: <200 mg/dL Desirable 200-240 mg/dL Borderline >240 mg/dL High Risk Performed By: #### L 500.4050, L500.4100, L100.0100, L506.1000 #### [facility] [address] [place], [address] Cholesterol in HDL [Mass/Vol] 50 mg/dL Normal [facility] Comment on above: Order Comment: Order Date: 04/24/24 Order Info: 07 - CMP Order Info: [id number] - LIPID Result Comment: The drugs N-Acetylcysteine and Metamizole may falsely depress this assay. Reference Range HDL <40 mg/dL Low HDL Cholesterol HDL >or= 60 mg/dL High HDL Cholesterol Performed By: #### L 500.4050, L500.4100, L100.0100, L506.1000 #### [facility] [address] [place], [address] Cholesterol in LDL [Mass/Vol] 131 mg/dL High 0-130 [facility] Comment on above: Order Comment: Order Date: 04/24/24 Order Info: [id number] - CMP Order Info: [id number] - LIPID Performed By: #### L 500.4050, L500.4100, L100.0100, L506.1000 #### [facility] [address] [place], [address] Cholesterol in VLDL [Mass/Vol] 13 mg/dL Normal 5-40 [facility] Comment on above: Order Comment: Order Date: 04/24/24 Order Info: [id number] - CMP Order Info: [id number] - LIPID Performed By: #### L 500.4050, L500.4100, L100.0100, L506.1000 #### [facility] [address] [place], [address] Triglyceride [Mass/Vol] 66 mg/dL Normal [facility] Comment on above: Order Comment: Order Date: 04/24/24 Order Info: [id number] - CMP Order Info: [id number] - LIPID Result Comment: The drugs N-Acetylcysteine and Metamizole may falsely depress this assay. Serum Triglycerides Reference Interval Normal <150 mg/dL Borderline high 150 - 199 mg/dL High 200 - 499 mg/dL Very High > or = 500 mg/dL Performed By: #### L 500.4050, L500.4100, L100.0100, L506.1000 #### [facility] [address] [place], [place], [address] Vitamin D,25 Hydroxyon 04-24 Vitamin D 25-OH 37.0 ng/mL Normal [facility] Comment on above: Order Comment: Order Date: 04/24/24 Order Info: [id number] - VITD25 Result Comment: Julia min D 25(OH) Status Range Deficiency <20 ng/mL (50nmol/L) Insufficiency 20 - 30 ng/mL (50 - 75 nmol/L) Sufficiency 30 - 100 ng/mL (75 - 250 nmol/L) Toxicity >100 ng/mL (>250 nmol/L) Performed By: #### L 500.4050, L500.4100, L100.0100, L506.1000 #### [facility] [address] [place], [place], [address] Absolute lymphocyte countOrd ered By: Abigail Guthrie on 04-18-2023 Lymphocytes Auto (Unsp spec) [#/Vol] 1.75 10*3/uL 0.83-4.51 [facility] Basophil percentageOrdered B y: Abigail Guthrie on 04-18-2023 Basophils/100 WBC (Bld) 0.7 % 0-1 [facility] Bilirubin [Mass/Vol] 0.40 mg/dL 0.20-1.00 [facility] Comment on above: For patients on eltr ombopag therapy, use of Dimension [place] TBIL is not recommended. Chloride [Moles/Vol] 106 mmol/L 98-107 [facility] Cholesterol [Mass/Vol] 188 mg/dL <200 [facility] Comment on above: <200 mg/dL Desirable 200-240 mg/dL Borderline >240 mg/dL High Risk Eosinophils/100 WBC (Bld) 1.8 % 0-5 [facility] Glucose [Mass/Vol] 82 mg/dL 74-106 [facility] Neutrophils (Bld) [#/Vol] 5.9 10*3/uL 2.0-7.7 [facility] Neutrophils/100 WBC (Bld) 68.6 % 47-70 [facility] Potassium [Moles/Vol] 4.0 mmol/L 3.5-5.1 [facility] Protein [Mass/Vol] 7.7 g/dL 6.4-8.2 [facility] Sodium [Moles/Vol] 136 mmol/L 136-145 [facility] Triglyceride [Mass/Vol] 128 mg/dL <199 [facility] Comment on above: The drugs N-Acetylcy steine and Metamizole may falsely depress this assay.Serum Triglycerides Reference Interval Normal <150 mg/dL Borderline high 150 - 199 mg/dL High 200 - 499 mg/dL Very High > or = 500 mg/dL WBC (Bld) [#/Vol] 8.5 10*3/uL 4.4-11.0 [facility] Blood erythrocytes count (nu mber/volume)Ordered By: Abigail Guthrie on 04-18-2023 RBC (Bld) [#/Vol] 5.05 10*6/uL 4.6-6.2 [facility] Blood hemoglobin measurement (mass/volume)Ordered By: Abigail Guthrie on 04-18-2023 Hemoglobin (Bld) [Mass/Vol] 14.9 g/dL 13.0-16.5 [facility] Blood lymphocytes/100 leukoc ytesOrdered By: Abigail Guthrie on 04-18-2023 Lymphocytes/100 WBC (Bld) 20.5 % 19-41 [facility] Blood monocytes/100 leukocyt esOrdered By: Abigail Guthrie on 04-18-2023 Monocytes/100 WBC (Bld) 8.0 % 0-10 [facility] Blood platelet mean volumeOr dered By: Abigail Guthrie on 04-18-2023 Platelet mean volume (Bld) [Entitic vol] 11.2 fL 6.2-12.0 [facility] Determination of erythrocyte mean corpuscular volume (MCV)Ordered By: Abigail Guthrie on 04-18-2023 MCV (RBC) [Entitic vol] 91.3 fL 80-94 [facility] Hematocrit Auto (Bld) [Volum e fraction]Ordered By: Abigail Guthrie on 04-18-2023 Hematocrit (Bld) [Volume fraction] 46.1 % 40-54 [facility] - Chemistry and C hemistry - challengeOrdered By: Abigail Guthrie on 04-18-2023 ALP [Catalytic activity/Vol] 51 U/L 45-117 [facility] ALT [Catalytic activity/Vol] 27 U/L 16-61 [facility] CO2 [Moles/Vol] 27.0 mmol/L 21.0-32.0 [facility] Globulin (S) [Mass/Vol] 3.7 g/dL 2.2-4.2 [facility] Urea nitrogen/Creatinine [Mass ratio] 18.7 mg/mg 10-20 [facility] - Hematology and Cell countsOrdered By: Abigail Guthrie on 04-18-2023 Erythrocyte distribution width (RBC) [Entitic vol] 41.7 fL 35.1-43.9 [facility] Erythrocyte distribution width (RBC) [Ratio] 12.7 % 11.6-14.6 [facility] Immature granulocytes/100 WBC (Bld) 0.400 % 0.0-0.9 [facility] Comment on above: IG% - Immature Granu locytes (promyelocytes, myelocytes and metamyelocytes) > 1% indicates that a LEFT SHIFT is Present. MCH (RBC) [Entitic mass] 29.5 pg 27.0-32.0 [facility] Nucleated RBC/100 WBC (Bld) [Ratio] 0 % 0-5 [facility] MCHC Auto (RBC) [Mass/Vol]Or dered By: Abigail Guthrie on 04-18-2023 MCHC (RBC) [Mass/Vol] 32.3 g/dL 32-36 [facility] No Panel InformationOrdered By: Abigail Guthrie on 04-18-2023 Estimated GFR (MDRD) Amer 99 mL/min >60 [facility] Comment on above: GFR Calc Estimated GFR (MDRD) Non-Af Amer 82 mL/min >60 [facility] Comment on above: Non- GFR Calc Thyroid Stimulating Hormone (TSH) 2.22 uIU/mL 0.358-3.74 [facility] Platelets bldOrdered By: Shayla Guthrie on 04-18-2023 Platelets (Bld) [#/Vol] 259 10*3/uL 150-450 [facility] Serum or plasma albumin arnav urement (mass/volume)Ordered By: Abigail Guthrie on 04-18-2023 Albumin [Mass/Vol] 4.0 g/dL 3.2-5.0 [facility] Serum or plasma albumin/glob ulin mass ratioOrdered By: Abigail Guthrie on 04-18-2023 Albumin/Globulin [Mass ratio] 1.1 {ratio} 0.9-2.4 [facility] Serum or plasma calcium arnav urement (mass/volume)Ordered By: Abigail Guthrie on 04-18-2023 Calcium [Mass/Vol] 9.0 mg/dL 8.5-10.1 [facility] Serum or plasma cholesterol in HDL measurement (mass/volume)Ordered By: Abigail Guthrie on 04-18-2023 Cholesterol in HDL [Mass/Vol] 47 mg/dL >40 [facility] Comment on above: The drugs N-Acetylcy steine and Metamizole may falsely depress this assay. Reference Range HDL <40 mg/dL Low HDL Cholesterol HDL >or= 60 mg/dL High HDL Cholesterol Serum or plasma cholesterol in VLDL measurement (mass/volume)Ordered By: Abigail Guthrie on 04-18-2023 Cholesterol in VLDL [Mass/Vol] 26 mg/dL 5-40 [facility] Serum or plasma creatinine m easurement (mass/volume)Ordered By: Abigail Guthrie on 04-18-2023 Creatinine [Mass/Vol] 1.07 mg/dL 0.70-1.30 [facility] Comment on above: The validity of the calculated GFR & GFRAA in patients over 70 years has not been determined. Clinical correlation is essential. Serum or plasma low density lipoprotein (LDL) cholesterol measurement (mass/volume)Ordered By: Abigail Guthrie on 04-18-2023 Cholesterol in LDL [Mass/Vol] 115 mg/dL 0-130 [facility] Serum or plasma urea nitroge n measurement (mass/volume)Ordered By: Abigail Guthrie on 04-18-2023 Urea nitrogen [Mass/Vol] 20 mg/dL 7-18 [facility] Thin prep Papanicolaou smear with manual screeningOrdered By: Abigail Guthrie on 04-18-2023 Thin prep Papanicolaou smear with manual screening 21 U/L 15-37 [facility] Thin prep Papanicolaou smear with manual screening 3 5-15 [facility] Whole blood hemoglobin A1c/t otal hemoglobin ratio (mass fraction)Ordered By: Abigail Guthrie on 04-18-2023 HbA1c (Bld) [Mass fraction] 5.2 % 3.8-5.6 [facility] Comment on above: Normal < 5.7 % Predi abetic 5.7 - 6.4 % Diabetic >or= 6.5 % Please note range changes. VIRAL RESPIRATORY PANELon Adenovirus NOT DETECTED Normal NOT DETECTED [facility] Comment on above: Performed By: #### R ESPIRA #### [place] [address] [facility] [id number] B parapertussis NOT DETECTED Normal NOT DETECTED [facility] Comment on above: Performed By: #### R ESPIRA #### [place] [address] [id number] B pertussis NOT DETECTED Normal NOT DETECTED [facility] Comment on above: Performed By: #### R ESPIRA #### [place] [address] [facility] [id number] Chlamydia pneumoniae NOT DETECTED Normal NOT DETECTED [facility] Comment on above: Performed By: #### R ESPIRA #### [place] [address] [facility] [employer] [facility] CLIA [id number] CORONAVIRUS 19 NOT DETECTED Normal NOT DETECTED [facility] Comment on above: Performed By: #### R ESPIRA #### [facility] [address] [place] [address] [facility] [id number] CORONAVIRUS [id number] NOT DETECTED Normal NOT DETECTED [facility] Comment on above: Performed By: #### R ESPIRA #### [facility] [address] [place] [address] [facility] [id number] CORONAVIRUS HKU1 NOT DETECTED Normal NOT DETECTED [facility] Comment on above: Performed By: #### R ESPTEREZA #### [facility] [address] [place] [address] [employer] [facility] CLIA [id number] CORONAVIRUS NL63 NOT DETECTED Normal NOT DETECTED [facility] Comment on above: Performed By: #### R ESPIRA #### [facility] [address] [place] [address] [facility] [employer] [id number] CORONAVIRUS OC43 NOT DETECTED Normal NOT DETECTED [facility] Comment on above: Performed By: #### R BARBARA #### [facility] [address] [place] [address] [facility] [id number] Human Metapneumoviru NOT DETECTED Normal NOT DETECTED [facility] Comment on above: Performed By: #### R ESPIRA #### [facility] [address] [place] [address] [facility] [employer] [facility] CLIA [id number] Influenza A NOT DETECTED Normal NOT DETECTED [facility] Comment on above: Performed By: #### R ESPTEREZA #### [facility] [address] [place] [address] [employer] [facility] CLIA [id number] Influenza A / H1 NOT DETECTED Normal NOT DETECTED [facility] Comment on above: Performed By: #### R ESPIRA #### [facility] [address] [place] [address] [employer] [facility] CLIA [id number] Influenza A / H3 NOT DETECTED Normal NOT DETECTED [facility] Comment on above: Performed By: #### R ESPIRA #### [facility] [address] [place] [address] [employer] [facility] MENDEZIA [id number] Influenza A H1-2009 NOT DETECTED Normal NOT DETECTED [facility] Comment on above: Performed By: #### R ESPIRA #### [facility] [address] [place] [address] [employer] [facility] CLIA [id number] Influenza B NOT DETECTED Normal NOT DETECTED [facility] Comment on above: Performed By: #### R ESPIRA #### [facility] [address] [place] [address] [employer] [facility] MENDEZIA [id number] Mycoplasma pneumonia NOT DETECTED Normal NOT DETECTED [facility] Comment on above: Performed By: #### R ESPIRA #### [facility] [address] [place] [address] [employer] [facility] M[facility] [id number] Parainfluenza 1 NOT DETECTED Normal NOT DETECTED [facility] Comment on above: Performed By: #### R ESPIRA #### [facility] [address] [place] [address] [employer] [facility] MENDEZIA [id number] Parainfluenza 2 NOT DETECTED Normal NOT DETECTED [facility] Comment on above: Performed By: #### R ESPIRA #### [facility] [address] [place] [address] [employer] [facility] CLIA [id number] Parainfluenza 3 NOT DETECTED Normal NOT DETECTED [facility] Comment on above: Performed By: #### R ESPIRA #### [facility] [address] [place] [address] [employer] [facility] MENDEZIA [id number] Parainfluenza 4 NOT DETECTED Normal NOT DETECTED [facility] Comment on above: Performed By: #### R ESPIRA #### [facility] [address] [place] [address] [employer] [facility] CABRERA [id number] Rhinovirus NOT DETECTED Normal NOT DETECTED [facility] Comment on above: Performed By: #### R ESPIRA #### [facility] [address] [place] [address] [employer] [facility] CABRERA [id number] RSV NOT DETECTED Normal NOT DETECTED [facility] Comment on above: Performed By: #### R ESPIRA #### [facility] [address] [place] [address] [employer] [facility] CABRERA [id number] Encounters Encounter Date Encounter Type Care Provider Facility Start: 04-13-2025 ambulatory Omer Gonzalez lity:[facility] Start: 03-13-2025 End: 03-13-2025 ambulatory Kristan Ceron [place] Start: 02-25-2025 End: 02-25-2025 ambulatory KRISTAN CERON MD Facility:[facility] Start: 02-25-2025 End: 02-25-2025 Patient encounter procedure KRISTAN CERON MD [facility] Start: 12-26-2024 End: 12-26-2024 ambulatory Kristan Ceron MD Work Phone: -Cat Scan [facility] Start: 12-26-2024 End: 12-26-[address] Kristan Ceron MD -Cat Scan [facility] Work Phone: Start: 12-26-2024 End: 12-26-2024 ambulatory Kristan Ceron Facility:[facility] Start: 04-24-2024 End: 04-24-2024 ambulatory Kristan Floridalma Facility:[facility] Start: 04-25-2023 End: 04-25-2023 ambulatory [facility] Work Phone: Start: 04-25-2023 End: 04-25-2023 Patient encounter procedure [facility]-Ultrasound, [facility] Work Phone: Start: 04-18-2023 End: 04-18-2023 ambulatory [facility] Work Phone: Start: 04-18-2023 End: 04-18-2023 Patient encounter procedure [facility] Start: 11-13-2019 End: 11-14-2019 Patient encounter procedure KULWANT CAMPBELL Facility:[facility] Live Procedures Date Procedure Procedure Detail Performing Clinician Start: 12-26-2024 Computed tomography of abdomen and pelvis with contrast Kristan Ceron MD Work Phone: Start: 04-25-2023 US scan of thyroid Immunizations Immunization Date Immunization Notes Care Provider Fa cility 06-30-2021 tetanus toxoid, redu thao diphtheria toxoid, and acellular pertussis vaccine, adsorbed [facility] Payers Date Payer Category Payer Private Health Insurance [id number] 2024 Self-pay [id number] 1985 Unknown [id number] 2.16.8 [id number] 1984 Unknown [id number] 1959 Unknown [id number] Unknown [id number] 2.16.8 [id number] Unknown [id number] 2.16.8 [id number] Unknown [id number] 2.16.8 [id number] Unknown [id number] 2.16.8 [id number] Social History Date Type Detail Facility [facility] Start: 1985 Sex Assigned At Male [facility] Start: 06-30-2021 Tobacco smoking stat us [facility] Never smoked tobacco (finding) [facility] Tobacco smoking status [facility] Start: 02-23-2025 Sex Male (finding) [facility] Clinical Note 02-25-2025 Note Date & Type Note Facility 02-25-2025 Note Exam Date Time Procedure Performing Provider Status 02/25/25 8:50 AM US Groin Right MADELYN CARSON MD; Auth (Verified) [id number] ORIGINAL EXAMINATION: Right groin VEEEDCZDPL06/15/2025 9:57 am COMPARISON: None TECHNIQUE: This interpretation is based on permanently stored and recorded images. The groin is scanned without and with the patient performing Valsalva. HISTORY: ORDERING SYSTEM PROVIDED HISTORY: Reason for Exam: ABD PAIN, , painful swelling in the right groin FINDINGS: There is a right groin hernia of 3.6 x 2.9 x 0.8 cm that contains fat and bowel. This is more prominent with Valsalva. The hernia is non reducible with gentle pressure. The hernia neck is about 1.7 cm. IMPRESSION: Right inguinal hernia. Interpreted by: Madelyn Carson MD Preliminary Report By: Madelyn Carson MD Electronically signed By Madelyn Carson MD Dictated Date: 02/25/2025 10:50:58 AM Prelim Date: 02/25/2025 10:52:53 AM Sign Date: 02/25/2025 10:52:53 AM Ordering Provider: KRISTAN CERON [facility] Radiology Diagnostic study note 12-28-2024 Note Date & Type Note Facility 12-28-2024 Radiology Diagnostic study note [facility] [address], [place] [address] Abdomen/Pelvis WITH Contrast MR#: [id number] Acct: [id number] Name: TRUNG LUCERO Rep #: [id number] : 1985 M 39 From: Julia Montez MD PCP: Dr. Kristan Ceron MD Status: REG CL I Study:Abdomen/Pelvis WITH Contrast Date of Ex am: 12/26/24 Exam# [id number] Ordering Dr: Angela Ceron MD PROCEDURE: ABDOMEN/PELVIS WITH CONTRAST 12/26/2024 REASON FOR EXAM: ABD PAIN TECHNIQUE: ABDOMEN/PELVIS WITH CONTRAST Coronal and Sagittal reconstruction series were provided. CONTRAST: Isovue 370 VOLUME: 100 mL One or more dose reduction techniques were used (e.g., Automated exposure control, adjustment of the mA and/or kV according to patient size, use of iterative reconstruction technique. RADIATION DOSE SUMMARY: CTDlvol: 30 mGy DLP: 868 mGycm FINDINGS: Oral contrast was administered. There is no bowel obstruction. There is no free-fluid or free air. There is no pelvic or retroperitoneal adenopathy. There is no bowel dilatation or bowel wall thickening. Normal caliber of the abdominal aorta. No renal mass or hydronephrosis. Normal liver, spleen and pancreas. No adrenal orpancreatic abnormalities. No calcified gallstones. No mesenteric mass or adenopathy. There are bilateral L5 pars defects incidentally seen. The lung bases are clear CT/Abdomen/Pelvis WITH Contrast IMPRESSION: No acute abnormality Reading [facility] CC: Dr. Kristan Ceron MD ~ [employer] Technician: Signed [facility] Evaluation + Plan note Note Date & Type Note Facility Evaluation + Plan note No data available for this section [facility] Evaluation note Note Date & Type Note Facility Evaluation note No assessment information availa [facility] Work Phone: Hospital Discharge instructions Note Date & Type Note Facility Hospital Discharge instructions No data available for this section [facility] Progress note Note Date & Type Note Facility Progress note No data available for this section [facility] Reason for referral (narrative) Note Date & Type Note Facility Reason for referral (narrative) No reason for referral information available [facility] Work Phone: Summary Purpose Family History No Family History Records Found No data available for this section No Family History Records FoundNo Family History Records Found Advance Directives No Advanced Directives Records FoundNo Advanced Directives Records FoundNo Advanced Directives Records Found Chief Complaint and Reason for Visit Chief Complaint LOCALIZED SWELLING Chief Complaint Admit Date ABD PAIN, POSSIBLE HERNIA December 26 2:18pm Additional Source Comments (unrecognized sect ion and content) No Status Records FoundNo Status Records FoundNo Status Records Found INFORMATION SOURCE (unrecogn ized section and content) DATE CREATED AUTHOR 04/07/2020 [email or web address] DATE CREATED AUTHOR AUTHOR'S ORGANIZ ATION 02/28/2025 [facility] DATE CREATED AUTHOR AUTHOR'S ORGANIZ ATION 03/13/2025 [facility] Care Teams (unrecognized sec tion and content) Team Status: Active Member Role Status Dates Dr. Franki Evans MD Family Provider Active Abigail Guthrie , DO Primary Care Provider Active Team Status: Inactive Member Role Status Dates Abigail Guthrie , DO Primary Care Provider, Attending Provider Active Team Status: Inactive Member Role Status Dates Abigail Guthrie , DO Primary Care Provi griselda, Attending Provider, Referring Provider Active Team Status: Active Member Role/Relationship Status Dates Kristan Ceron MD Primary Care Provider Active Team Status: Inactive Member Role/Relationship Status Dates Kristan Ceron MD Primary Care Provider Active St art: December 26, 2024 End: December 26, 2024 Kristan Ceron MD Attending Provider Active Start : December 26, 2024 End: December 26, 2024 Kristan Ceron MD Referring Provider Active Start : December 26, 2024 End: December 26, 2024 Goals (unrecognized section and content) Goals may be documented in a n alternate sectionGoals may be documented in an alternate sectionGoals may be documented in an alternate section No data available for this section FOR RECORDS PERTAINING TO PATIENTS WHO ARE OR HAVE BEEN ENROLLED IN A CHEMICAL DEPENDENCY/SUBSTANCEABUSE PROGRAM, SOME INFORMATION MAY BE OMITTED. This clinical summary was aggregated from multiple sources. Caution should be exercised in using it in the provision of clinical care. This summary normalizes information from multiple sources, and as a consequence, information in this document may materially change the coding, format and clinical context of patient data. In addition, data may be omitted in some cases. CLINICAL DECISIONS SHOULD BE BASED ON THE PRIMARY CLINICAL RECORDS. [facility]. provides no warranty or guarantee of the accuracy or completeness of information in this document.
== END 2025-04-02 16:58 | disposition home or self-care (01) ==
LOC: SDC 11:58 → AC 12:00
PROVIDERS: PCP Family Medicine; Referring Provider Surgery; Visit Provider Surgery
PROC: (CPT 49650; principal; 2025-04-02 13:10)
DX: K40.90 Unilateral inguinal hernia, without obstruction or gangrene, not specified as recurrent (principal); D17.5 Benign lipomatous neoplasm of intra-abdominal organs
CPT/HCPCS: 49650; S2900; 00840; C1781; J2405